=== PATIENT | female | born 1985 | race Caucasian/White ===

== ENCOUNTER 2017-11-05 09:00 | Day surgery (SDC) | payer OTHER ==
[~2017-11-05] VITALS: Ht 167.6 cm; Wt 83.9 kg
[~2017-11-05 09:00] MED LIST: LAMISIL250 MG PO; NORCO 5/3251 TABLET PO; TYLENOL REGULA325 MG PO
[2017-11-05 09:39] VITALS: BP 109/78
[2017-11-05] MEDS ORDERED: PERCOCET 5/31 TABLET PO (12:05)
[2017-11-05 12:22] VITALS: BP 117/71
[2017-11-05 13:10] VITALS: BP 108/63
== END 2017-11-05 13:10 | disposition home or self-care (01) ==
LOC: SDC 09:00
DX: L72.0 Epidermal cyst (principal)
CPT/HCPCS: 88304; J0690; J2250; J3010; S0020